=== PATIENT | male | born 1995 | race African-American/Black ===

== ENCOUNTER 2017-08-03 18:31 | Emergency (ER) | payer MEDICAID ==
[~2017-08-03] VITALS: Ht 175.3 cm; Wt 65.0 kg
[2017-08-03 18:38] VITALS: BP 112/62
== END 2017-08-03 19:06 | disposition left against medical advice (07) ==
LOC: ER 18:46
DX: Z53.21 Procedure and treatment not carried out due to patient leaving prior to being seen by health care provider (principal)